=== PATIENT | female | born 1930 | race Caucasian/White ===

== ENCOUNTER → 2018-04-13 | Outpatient (CLI) | payer MEDICARE ==
[~2018-04-13] MED LIST: APIX5TAB PO; CHOL200026 PO; DILT120C92 PO; FURO20TA4 PO; METO25TA6 PO; POTA10TA14 PO; PRAV40TA3 PO; PROP225C11 PO; SODIUM CHLORIDE 0.9% 1000ML 1,000 ML IV SCH; TRAM50TA4 PO; [UNRECOGNIZED DRUG - OTHER] PO
[2018-04-13 15:13] LABS: BASOPHILS % (AUTO) 0.8 % (0.0-5.0); EOSINOPHILS % (AUTO) 0.4 % (0.0-8.0); HEMATOCRIT 44.7 % (36-48); LYMPHOCYTES % (AUTO) 27.9 % (21.0-51.0); MEAN CORPUSCULAR HEMOGLOBIN 30.2 pg (27.0-33.0); MEAN CORPUSCULAR VOLUME 91.6 fL (79-99); MONOCYTES % (AUTO) 15.7 % (3.0-13.0); NEUTROPHILS % (AUTO) 55.2 % (40.0-77.0); NUCLEATED RED BLOOD CELLS 0.1 % (0.0-0.19); PLATELET COUNT (AUTO) 155 K/uL (130-400); RED BLOOD CELL COUNT(AUTO) 4.88 MIL/uL (4.00-5.50); RED CELL DISTRIBUTION WIDTH 14.5 % (11.0-15.5); WHITE BLOOD COUNT (AUTO) 4.4 K/uL (4.8-10.8)
[2018-04-13 15:23] LABS: CREATININE 1.4 mg/dL (0.5-1.5); POTASSIUM 4.1 mmol/L (3.5-5.1)
[2018-04-13 15:27] LABS: PARTIAL THROMBOPLASTIN TIME 30.9 SEC (26.3-35.5); PROTHROMBIN TIME 10.5 SEC (9.6-11.6)
--- NOTE | 2018-04-16 12:00 | NUR ---
ABNORMAL LABS, DIAGNOSED WITH URI, TAKING ANTIBIOTIC DR. CASTELLON NOTIFIED OF PT'S CREAT 1.4. ALSO NOTIFIED DR. CASTELLON THAT ON PRE OP 04/13/18, PT STATED SHE WAS DIAGNOSED WITH URI AND STARTED ANTIBIOTICS THAT DAY. PER DR. CASTELLON, RESCHEDULE PROCEDURE DUE TO URI, CALL PT AND INSTRUCT TO RESUME ELIQUIS.
--- NOTE | 2018-04-16 12:23 | NUR ---
NOTE CALLED PT AND INFORMED HER THAT HER PROCEDURE IS GOING TO BE RESCHEDULED DUE TO URI. ALSO INSTRUCTED PT TO RESUME ELIQUIS FOR NOW PER DR. CASTELLON ORDER. PT VERBALIZED UNDERSTANDING. DR. RUBIO STAFF ALSO NOTIFIED OF CANCELLATION, STATED THEY WILL INFORM [facility]
== END ==
LOC: DAH 10:00 → EDSTATUS 14:00
PROVIDERS: ATTEND Internal Medicine Cardiovascular Disease
DX: Z01.818 Encounter for other preprocedural examination (principal); T82.897A Other specified complication of cardiac prosthetic devices, implants and grafts, initial encounter
CPT/HCPCS: 36415; 80048; 85025; 85610; 85730; 93005